=== PATIENT | male | born 1995 | race Caucasian/White ===

== ENCOUNTER 2021-04-28 11:34 | Emergency (ER) | payer OTHER, SELFPAY ==
--- NOTE | ~2021-04-28 | XR_ITS ---
XR foot LT min 3V 04/28/2021 12:04 Indication: Left foot pain after trauma Procedure: 4 views left foot Comparison: No prior studies for comparison. Findings: There is an avulsion fracture medial base first proximal phalanx. Mild soft tissue swelling . Lisfranc joint intact. No foreign bodies. Impression: 1: Minimally displaced avulsion fracture medial base left first proximal phalanx. Reviewed, dictated and finalized at location [facility] Impression: 1: Minimally displaced avulsion fracture medial base left first proximal phalan x.
[2021-04-28 11:42] VITALS: BP 157/77; PULSE 73; RESP 18; TEMP 37.1; O2SAT 99
--- NOTE | 2021-04-28 11:42 | ED.LOWEXIN ---
HPI - Extremity Injury (Lower) General Chief Complaint: Extremity Injury, Lower Stated Complaint: Left Foot Injury Time Seen by Provider: 04/28/21 11:42 Source: patient and RN notes reviewed History of Present Illness HPI Narrative: Patient is a 25-year-old male who presents the urgent care with complaints of left great toe pain. Patient states that on Wednesday he fell on the ice and heard a pop of the left great toe. Patient states has been elevating and using ice and ibuprofen for pain. Denies any other complaints or injuries from the fall. No distress noted. Patient aware of the plan of care. Some parts of this dictation were generated by voice recognition software and may contain typographical and/or grammatical inaccuracies. Related Data Home Medications Medication Instructions Recorded Confirmed No Home Medications 04/28/21 04/28/21 Allergies Allergy/AdvReac Type Severity Reaction Status Date / Time Penicillins Allergy Unknown Hives Verified 04/28/21 11:50 Review of Systems Review of Systems: CONSTITUTIONAL: Denies fever, chills, or sweats. EYES: Denies visual changes, redness, or discharge. ENT: Denies rhinorrhea, congestion, sore throat, or otalgia. CARDIOVASCULAR: Denies chest pain, palpitations, or edema. RESPIRATORY: Denies cough or dyspnea. GASTROINTESTINAL: Denies abdominal pain, nausea, vomiting, or diarrhea. GENITOURINARY: Denies dysuria or hematuria. SKIN: Denies rash or itching. MUSCULOSKELETAL: Reports of left great toe pain NEUROLOGIC: Denies headache, numbness, or weakness. All other systems reviewed are negative, except as documented in HPI. PMFSH Social History Social History (Updated 08/07/20 @ 14:04 by Camille Garcia MA) Smoking status: Never smoker Alcohol intake: current Alcohol use details: social Comments At the time of my signature, I reviewed and agree with the nursing past medical, surgical, social, and family history. There is no relevant family history pertinent to the patient complaint. Exam Narrative: GENERAL: This is a well-nourished, well-developed patient, in no apparent distress. HEAD: normocephalic, atraumatic. EYES: PERRL. Sclera clear/white. Vision is grossly intact. EARS: External ears normal NOSE: External nose normal with no obvious nasal discharge, nares without redness, no rhinorrhea. THROAT: Mucous membranes moist NECK: Neck supple CARDIOVASCULAR: Regular rate and rhythm without murmurs, gallops, or rubs. RESPIRATORY: Clear to auscultation. Breath sounds equal bilaterally. No wheezes, rales, or rhonchi. SKIN: warm, intact with no suspicious lesions or rash, good texture and turgor. NEURO: awake, alert, and oriented to person, place and time. There were no obvious focal neurologic abnormalities. EXTREMITIES: Mild to moderate edema noted to the left great toe with mild to moderate ecchymosis and tenderness. Positive strong left pedal pulse with capillary refill less than 2 seconds. Course Course Level of Care: Express Care Visit Vital Signs Vital signs: Vital Signs Temperature 98.7 F 04/28/21 11:42 Pulse Rate 73 04/28/21 11:42 Respiratory Rate 18 04/28/21 11:42 Blood Pressure 157/77 H 04/28/21 11:42 Pulse Oximetry 99 04/28/21 11:42 Temperature 98.7 F 04/28/21 11:51 Pulse Rate 73 04/28/21 11:51 Respiratory Rate 18 04/28/21 11:51 Blood Pressure 157/77 H 04/28/21 11:51 Pulse Oximetry 99 04/28/21 11:51 Reviewed-patient is informed that they may have pre-hypertension or hypertension based on a blood pressure reading in the department. I recommend the patient call the primary care provider listed on their discharge instructions or a physician of their choice this week to arrange follow-up for further evaluation of possible pre-hypertension or hypertension. Procedures Orthopedic Splinting/Casting Injury #1: Side: left Lower Extremity Injury Location: toe Other Orthopedic Equipment: other
[2021-04-28 11:51] VITALS: BP 157/77; PULSE 73; RESP 18; TEMP 37.1; O2SAT 99
== END 2021-04-28 12:35 | disposition home or self-care (01) ==
PROVIDERS: Emergency Provider Nurse Practitioner Family; PCP Internal Medicine
DX: S92.412A Displaced fracture of proximal phalanx of left great toe, initial encounter for closed fracture (principal); W00.9XXA Unspecified fall due to ice and snow, initial encounter
CPT/HCPCS: 73630; 99214; G0463

== ENCOUNTER 2022-08-14 17:55 | Emergency (ER) | payer OTHER, SELFPAY ==
--- NOTE | 2022-08-14 17:59 | ED.SKABFB ---
HPI - Skin/Abscess/Foreign Bdy General Chief complaint: Skin/Abscess/Foreign Body Stated complaint: rash on right side of face,bodyaches Time Seen by Provider: 08/14/22 17:59 Source: patient Mode of arrival: ambulatory Limitations: no limitations History of Present Illness HPI narrative: Pablo is a 26-year-old male patient presenting to the clinic today with complaints of a rash on the right side of his face, fever, and body ache. He reports the rash started almost 1 week ago however it is gradually getting worse and he has developed fever/swollen nodes today. Highest temp was 101? F Related Data Allergies Allergy/AdvReac Type Severity Reaction Status Date / Time Penicillins Allergy Unknown Hives Verified 08/14/22 18:05 Review of Systems Review of Systems: Pertinent positives per HPI. Patient denies any headache, visual changes, dizziness, cough, runny nose, sore throat, shortness of breath, chest pain, palpitations, nausea, vomiting, diarrhea, constipation, abdominal pain, or any urinary issues. [facility] Past Medical History Medical History Avulsion fracture Social History Social History Smoking status: Never smoker Alcohol intake: current Alcohol use details: social Substance use: never Substance use type: does not use Comments At the time of my signature, I reviewed and agree with the nursing past medical, surgical, social, and family history. There is no relevant family history pertinent to the patient complaint. Exam Narrative: General: Well-developed, obese, in no apparent distress Head: Normocephalic, atraumatic Eyes: Pupils equally round and reactive to light bilaterally, EOM intact, sclera and conjunctive clear, no discharge, lids normal Ears: TMs intact and clear, ear canals ceruminous, no drainage, grossly hearing normal. Nose: Nares patent, no discharge, no inflammation, no sinus tenderness. Mouth: Oropharynx red with tonsillar enlargement without lesions or masses, good dentition, MMM. Neck: Supple, trachea midline, enlargement of anterior cervical nodes, no thyroid masses or goiter palpable. Cardio: Regular rate and rhythm, s1 and s2 normal, no murmur appreciated. Resp: Clear to auscultation bilaterally anteriorly and posteriorly, no rhonchi, rales, wheezing or rubs Integumentary: [place], warm, and dry, intact without lesion, vesicular clustered rash to the right on cheek with with some yellow crusting Course Course Emergency Course: Portions of this record may have been created with voice recognition software. Level of Care: Express Care Visit Vital Signs Vital signs: Vital signs reviewed MDM - Skin/Abscess/Foreign Bdy MDM Narrative Medical decision making narrative: At the time of visit patient is resting comfortably on the exam table. Strep test was negative in the clinic today. I suspect patient has shingles versus a bacterial infection. Will send in prescription for doxycycline and acyclovir. Supportive measures were discussed with the patient he voiced understanding discharge instructions agrees to treatment plan. Differential Diagnosis Differential diagnosis: Likely abscess of skin or subcutaneous tissue, viral exanthem, herpes zoster, cellulitis, eczema, insect bites and contact dermatitis Discharge Plan Discharge Clinical Impression: Bacterial infection of skin Patient Disposition: Home, Self-Care Condition: Stable Instructions: Antibiotic Form, Wound Infection (ED), Shingles (ED) Additional Instructions: Bacterial skin infection versus shingles Will place patient on doxycycline and acyclovir May take Tylenol/Motrin as needed for pain Increase fluids and stay well hydrated Keep blistered lesion covered-is no longer contagious when it is crusted/scabbed Follow-up with your PCP in 3-5 days if symptoms persist Go to
[2022-08-14 18:12] VITALS: BP 155/88; PULSE 90; RESP 18; TEMP 38.4; O2SAT 100
== END 2022-08-14 18:33 | disposition home or self-care (01) ==
PROVIDERS: Emergency Provider Nurse Practitioner Family; PCP Physician Assistant
DX: A49.9 Bacterial infection, unspecified (principal)
CPT/HCPCS: 87081; 87880; 99213; G0463